=== PATIENT | male | born 2000 | race American Indian/Alaskan Native ===

== ENCOUNTER 2020-04-02 15:34 | Emergency (ER) | payer MEDICAID ==
[2020-04-02 15:59] VITALS: BP 139/94; PULSE 109
--- NOTE | 2020-04-02 17:01 | EDM.PDOC ---
<OfficerBladimir - Last Filed: 04/02/20 18:48> ED HPI GENERAL MEDICAL PROBLEM - General Chief Complaint: General Stated Complaint: FEVER CHILLS Time Seen by Provider: 04/02/20 16:50 - History of Present Illness INITIAL COMMENTS - FREE TEXT/NARRATIVE: 19-year-old gentleman presents emergency department a complaint of fevers and chills, he states his been ill for about 10 days fever was initially in the be ginning that has slowed down but now he is producing white sputum runny nose sore throat. Feels short of breath no history of asthma - Related Data Allergies Allergy/AdvReac Type Severity Reaction Status Date / Time No Known Allergies Allergy Verified 04/02/20 16:04 Home Meds: Home Meds Buprenorphine HCl/Naloxone HCl [Suboxone 4 mg-1 mg Sl Film] 8 mg PO DAILY 04/02/20 [History] Gabapentin [Neurontin] 600 mg PO BEDTIME 04/02/20 [History] Mirtazapine 15 mg PO DAILY 04/02/20 [History] QUEtiapine [SEROquel] 50 mg PO BEDTIME 04/02/20 [History] ED EXAM, GENERAL - Physical Exam Free Text/Narrative:: Reexamination by myself after albuterol inhaler still scant wheezing expiratory phase can be appreciated right greater than left mid to lower lung estrada Departure - Departure Time of Disposition: 18:52 Disposition: Home, Self-Care 01 Condition: Fair Clinical Impression: Bronchitis - Discharge Information Instructions: Upper Respiratory Infection, Adult Referrals: PCP,None [Primary Care Provider] - Forms: ED Department Discharge Additional Instructions: Take full course of antibiotics, take full course of steroids for 3 days, continue to use your Combivent inhaler every 4 hours as needed for shortness of breath symptoms, please followup with your primary care provider in 3-5 days if not better, please call return to the emergency department with worsening of symptoms. - Assessment/Plan Plan: Assessment Acuity = acute Site and laterality = bronchitis suspicious for underlying reactive airway disease Etiology = probably bacterial cause Manifestations = dyspnea Location of injury = Home Lab values = WBC elevated 12.5 consistent leukocytosis, CMP unremarkable, Covid test is negative chest x-ray I did review films myself I cannot appreciate any acute process, the official read from radiology is pending Plan He will continue to use his Combivent inhaler at home decided to treat empirically because he has been ill for 10 days with azithromycin 5-day course in combination with 3-day course of prednisone 20 mg once a day have him follow- up with primary care in 3 to 5 days for reevaluation if not better This note was dictated using [employer] voice recognition software please call with any questions on syntax or grammar. <Tito Alves - Last Filed: 04/26/20 15:28> ED HPI GENERAL MEDICAL PROBLEM - General Source of Information: Reports: Patient History Limitations: Reports: No Limitations - History of Present Illness Onset: Gradual Duration: Day(s): Quality: Reports: Ache Severity: Moderate Improves with: Reports: None Worsens with: Reports: None Associated Symptoms: Reports: Cough, Fever/Chills Past Medical History - Past Health History Medical/Surgical History: Denies Medical/Surgical History Psychiatric History: Reports: Addiction, Depression Social & Family History - Tobacco Use Tobacco Use Status *Q: Current Every Day Tobacco User Years of Tobacco use: 5 Packs/Tins Daily: 0.5 - Recreational Drug Use Recreational Drug Use: Yes Recreational Drug Type: Reports: Marijuana/Hashish, Methamphetamine Recreational Drug Use Frequency: Daily ED ROS GENERAL - Review of Systems Review Of Systems: See Below Constitutional: Reports: Fever, Chills, Malaise HEENT: Reports: No Symptoms Respiratory: Reports: Shortness of Breath, Wheezing, Cough Cardiovascular: Reports: No Symptoms Endocrine: Reports: Fatigue GI/Abdominal: Reports: No Symptoms : Reports: No Symptoms Musculoskeletal: Reports: Muscle Pain Skin: Reports: No Symptoms Neurological: Reports: No Symptoms Psychiatric: Reports: No Symptoms ED EXAM, GENERAL - Physical Exam Exam: See Below Exam Limited By: No Limitations General Appearance: Alert, WD/WN, Anxious, Mild Distress Ears: Normal External Exam Nose: Normal Inspection Throat/Mouth: Other (Mild oral pharyngeal redness) Head: Atraumatic, Normocephalic Neck: Normal Inspection Respiratory/Chest: Rhonchi, Wheezing. No: Accessory Muscle Use Cardiovascular: Regular Rate, Rhythm, No Murmur GI/Abdominal: Normal Bowel Sounds, Soft, Non-Tender Back Exam: Normal Inspection Extremities: Normal Inspection, Normal Range of Motion, No Pedal Edema Neurological: Alert, Oriented, Normal Cognition, Normal Gait, No Motor/Sensory Deficits Psychiatric: Normal Affect, Normal Mood Skin Exam: Warm, Dry Course - Vital Signs Last Recorded V/S: Last Vital Signs Temp 36.3 C 04/02/20 16:06 Pulse 109 H 04/02/20 16:06 Resp 16 04/02/20 16:06 BP 139/94 H 04/02/20 16:06 Pulse Ox 98 04/02/20 16:06 - Orders/Labs/Meds Labs: Laboratory Tests 04/02/20 04/02/20 04/02/20 Range/Units 17:23 17:23 17:44 WBC 12.5 H (4.5-11.0) K/uL RBC 5.87 (4.30-5.90) M/uL Hgb 15.5 H (12.0-15.0) g/dL Hct 47.4 (40.0-54.0) % MCV 81 (80-98) fL MCH 26 L (27-31) pg MCHC 33 (32-36) % Plt Count 476 H (150-400) K/uL Sodium 141 (140-148) mmol/L Potassium 3.7 (3.6-5.2) mmol/L Chloride 102 (100-108) mmol/L Carbon Dioxide 26 (21-32) mmol/L Anion Gap 13.1 (5.0-14.0) mmol/L BUN 11 (7-18) mg/dL Creatinine 1.2 (0.8-1.3) mg/dL Est Cr Clr Drug Dosing 107.78 mL/min Estimated GFR (MDRD) > 60 (>60) Glucose 91 (74-106) mg/dL Calcium 9.2 (8.5-10.1) mg/dL Total Bilirubin 0.6 (0.2-1.0) mg/dL AST 19 (15-37) U/L ALT 19 (12-78) U/L Alkaline Phosphatase 148 H (46-116) U/L Total Protein 9.0 H (6.4-8.2) g/dL Albumin 3.9 (3.4-5.0) g/dL Globulin 5.1 H (2.3-3.5) g/dL Albumin/Globulin Ratio 0.8 L (1.2-2.2) SARS-CoV-2 RNA (JOHN) Negative (NEGATIVE) Meds: Medications Discontinued Medications Generic Name Dose Route Start Last Admin Trade Name Freq PRN Reason Stop Dose Admin Albuterol/Ipratropium 0 gm 04/02/20 22:00 04/02/20 17:30 Combivent Respimat INH 1 puff QID LESTER Administration Albuterol/Ipratropium Confirm 04/02/20 17:22 04/02/20 17:30 Combivent Respimat Administered 04/02/20 17:23 Not Given Dose 4 gm INH .STK-MED ONE Buprenorphine/Naloxone 1 tab 04/02/20 17:05 04/02/20 17:30 Buprenorphine-Naloxone 8 Mg-2 Mg SL 04/02/20 17:06 1 tab ONETIME ONE Administration Sepsis Event Note (ED) - Evaluation Sepsis Screening Result: No Definite Risk
[2020-04-02] MEDS ORDERED: Buprenorphine/Naloxone 8-2 MG Tab.SL SL ONE (17:05)
[2020-04-02] MEDS ORDERED: Albuterol/Ipratropium 3.0-0.5 MG/3 ML Neb Soln NEB ONE (17:09)
[2020-04-02] MEDS ORDERED: Albuterol/Ipratropium 4 GM Inhalation Spray INH ONE (17:22)
[2020-04-02] MEDS ORDERED: Albuterol/Ipratropium 4 GM Inhalation Spray INH SCH (22:00)
--- NOTE | 2020-04-03 09:14 | CR ---
CHEST: Portable 04/02/2020 at 5:50 PM CLINICAL HISTORY:Pain and shortness of breath COMPARISON:None FINDINGS: The heart size, pulmonary vascularity and hilar structures are normal. No infiltrate effusion or pneumothorax is seen. IMPRESSION: No acute cardiopulmonary process.
== END 2020-04-02 19:03 | disposition home or self-care (01) ==
LOC: JP.ED 15:34
DX: J40 Bronchitis, not specified as acute or chronic (principal); F32.9 Major depressive disorder, single episode, unspecified; F17.210 Nicotine dependence, cigarettes, uncomplicated; Z79.899 Other long term (current) drug therapy
CPT/HCPCS: 36415; 71045; 80053; 85027; 87635; 87880; 99284; A9270; J0574; 99282; U0002

== ENCOUNTER 2021-04-24 02:16 | Emergency (ER) | payer SELFPAY | END 2021-04-24 05:05 | disposition left against medical advice (07) | LOC: JP.ED 02:16 | DX: Z53.21 Procedure and treatment not carried out due to patient leaving prior to being seen by health care provider (principal) ==

== ENCOUNTER 2021-10-20 18:30 | Emergency (ER) | payer MEDICAID ==
[2021-10-20 19:08] VITALS: BP 154/93; PULSE 63
[2021-10-20] MEDS ORDERED: Lidocaine 1% 5 ML VIAL INJECT ONE (20:21)
[2021-10-20] MEDS ORDERED: Bacitracin Oint 1 GM U/D Packet TOP ONE (20:40)
== END 2021-10-20 21:19 | disposition home or self-care (01) ==
LOC: JP.ED 18:30
DX: S61.412A Laceration without foreign body of left hand, initial encounter (principal); F17.210 Nicotine dependence, cigarettes, uncomplicated; Z88.0 Allergy status to penicillin; Z88.8 Allergy status to other drugs, medicaments and biological substances; W26.0XXA Contact with knife, initial encounter
CPT/HCPCS: 12001; 99281; 99282-25